=== PATIENT | female | born 1960 | race Caucasian/White ===

== ENCOUNTER → 2017-01-22 | Outpatient (CLI) | payer OTHER | END | disposition home or self-care (01) | LOC: CARD 15:50 | DX: I08.1 Rheumatic disorders of both mitral and tricuspid valves (principal) ==

== ENCOUNTER 2017-03-21 18:33 | Emergency (ER) | payer OTHER ==
[~2017-03-21] VITALS: Ht 175.2 cm; Wt 83.9 kg
[2017-03-21] MEDS ORDERED: ATENOLOL50 M1 PO (18:43)
[2017-03-21] MEDS ORDERED: KLOR-CON M1010 ME1 PO (18:43)
[2017-03-21] MEDS ORDERED: LIPITOR10 MG PO (18:44)
[2017-03-21] MEDS ORDERED: METFORMIN HCL1000 MG PO (18:44)
[2017-03-21] MEDS ORDERED: LOSARTAN POTASS25 M1 PO (18:44)
[2017-03-21] MEDS ORDERED: ASPIRIN81 M1 PO (18:45)
[2017-03-21] MEDS ORDERED: DULERA100 PO (18:45)
[2017-03-21] MEDS ORDERED: MONTELUKAST SOD10 MG PO (18:45)
[2017-03-21] MEDS ORDERED: PRILOSEC20 M1 PO (18:46)
[2017-03-21 19:34] LABS: BILIRUBIN 2+ (NEGATIVE); BLOOD 3+ (NEGATIVE); CLARITY TURBID (CLEAR); COLOR BROWN (YELLOW); GLUCOSE NEGATIVE (NEGATIVE); KETONE 1+ (NEGATIVE); NITRITE POSITIVE (NEGATIVE); PH 6.5 (5.0-9.0); PROTEIN 3+ (NEGATIVE)
[2017-03-21 19:39] LABS: LEUKO ESTERASE 3+ (NEGATIVE)
[2017-03-21 19:46] LABS: RBC TNTC rbc/hpf (0-2); URINE REFLEX COMMENT YES (NO)
[2017-03-21] MEDS ORDERED: PYRIDIUM100 MG PO (19:51)
[2017-03-21] MEDS ORDERED: MACROBID100 M1 PO (19:51)
[2017-03-21 20:19] LABS: BASO # 0.1 10*3/uL (0.0-0.1); BASO % 0.7 % (0.0-1.0); EOS # 0.5 10*3/uL (0.0-0.4); HEMATOCRIT 41.9 % (37.0-47.0); HEMOGLOBIN 13.8 g/dl (12.0-16.0); LYMPH # 1.7 10*3/uL (1.3-4.4); LYMPH % 16.9 % (27.0-41.0); MEAN CORPUSCULAR HGB CONC 32.9 g/dl (33.0-37.0); MEAN PLATELET VOLUME 10.4 fl (9.6-12.3); MONO # 0.5 10*3/uL (0.1-1.0); MONO % 5.2 % (3.0-9.0); NEUT # 7.1 10*3/uL (2.3-7.9); NEUT % 71.8 % (47.0-73.0); PLATELET COUNT AUTOMATED 250 10*3/uL (130-400); RED BLOOD COUNT 4.93 10*6/uL (4.10-5.10); RED CELL DISTRI WIDTH 13.6 % (0-14.5); WHITE BLOOD COUNT 9.9 10*3/uL (4.8-10.8)
[2017-03-21 20:35] LABS: ALBUMIN 4.1 gm/dl (3.1-4.5); BILIRUBIN, TOTAL 0.6 mg/dl (0.2-1.0); BUN 10 mg/dl (7-24); CARBON DIOXIDE 25 mmol/L (21-32); CHLORIDE 97 mmol/L (98-107); EST GLOM FILT AFRICAN AMERICAN > 60 ml/min; GLUCOSE 178 mg/dL (65-99); POTASSIUM 4.7 mmol/L (3.5-5.1); SGOT/AST 93 IU/L (3-35); SGPT/ALT 129 U/L (12-78); SODIUM 134 mmol/L (136-145); TOTAL PROTEIN 8.1 gm/dL (6.4-8.2)
[2017-03-21 20:36] LABS: ALKALINE PHOSPHATASE 157 U/L (45-117)
[2017-03-21 22:16] LABS: LA>2 REFLEX 2 HR DRAW NOW
== END 2017-03-21 21:10 | disposition home or self-care (01) ==
LOC: ED 18:33
PROVIDERS: Physician Assistant
DX: N30.01 Acute cystitis with hematuria (principal); E87.2 Acidosis; Z88.2 Allergy status to sulfonamides; Z79.82 Long term (current) use of aspirin; Z79.899 Other long term (current) drug therapy

== ENCOUNTER 2017-04-22 10:06 | Emergency (ER) | payer OTHER ==
[~2017-04-22] VITALS: Ht 175.2 cm; Wt 81.6 kg
[~2017-04-22 10:06] MED LIST: ASPIRIN81 M1 PO; ATENOLOL50 M1 PO; DULERA100 PO; KLOR-CON M1010 ME1 PO; LIPITOR10 MG PO; LOSARTAN POTASS25 M1 PO; MACROBID100 M1 PO; METFORMIN HCL1000 MG PO; MONTELUKAST SOD10 MG PO; PRILOSEC20 M1 PO; PYRIDIUM100 MG PO
== END 2017-04-22 11:54 | disposition home or self-care (01) ==
LOC: ED 10:06
DX: Z20.3 Contact with and (suspected) exposure to rabies (principal); S80.862A Insect bite (nonvenomous), left lower leg, initial encounter; S80.861A Insect bite (nonvenomous), right lower leg, initial encounter; Z98.890 Other specified postprocedural states; Z79.82 Long term (current) use of aspirin; Z79.899 Other long term (current) drug therapy; Z88.2 Allergy status to sulfonamides; W57.XXXA Bitten or stung by nonvenomous insect and other nonvenomous arthropods, initial encounter; Y93.89 Activity, other specified; Y92.89 Other specified places as the place of occurrence of the external cause; Y99.9 Unspecified external cause status

== ENCOUNTER 2017-04-25 07:22 | Emergency (ER) | payer OTHER ==
[~2017-04-25] VITALS: Ht 177.8 cm; Wt 81.6 kg
== END 2017-04-25 09:10 | disposition home or self-care (01) ==
LOC: ED 07:22
DX: Z23 Encounter for immunization (principal); Z79.899 Other long term (current) drug therapy; Z79.82 Long term (current) use of aspirin; Z88.2 Allergy status to sulfonamides

== ENCOUNTER 2017-04-29 07:42 | Emergency (ER) | payer OTHER ==
[~2017-04-29] VITALS: Wt 81.6 kg
== END 2017-04-29 08:30 | disposition home or self-care (01) ==
LOC: ED 07:42
DX: Z23 Encounter for immunization (principal); Z98.890 Other specified postprocedural states; Z79.82 Long term (current) use of aspirin; Z79.899 Other long term (current) drug therapy; Z88.2 Allergy status to sulfonamides

== ENCOUNTER 2017-05-06 07:53 | Emergency (ER) | payer OTHER | END 2017-05-06 09:27 | disposition home or self-care (01) | LOC: ED 07:53 | DX: Z23 Encounter for immunization (principal); Z79.82 Long term (current) use of aspirin; Z79.899 Other long term (current) drug therapy; Z88.2 Allergy status to sulfonamides ==

== ENCOUNTER → 2017-06-15 | Outpatient (CLI) | payer OTHER ==
[2017-06-15 10:36] LABS: ALBUMIN 3.9 gm/dl (3.1-4.5); ALKALINE PHOSPHATASE 148 U/L (45-117); BUN 9 mg/dl (7-24); CHLORIDE 103 mmol/L (98-107); CHOLESTEROL 146 mg/dL (<200); CREATININE 1.01 mg/dL (0.55-1.02); HDL CHOLESTEROL 66 mg/dl (40-60); LDL CHOLESTEROL 43 mg/dL (9-159); POTASSIUM 3.5 mmol/L (3.5-5.1); SGOT/AST 29 IU/L (3-35); SGPT/ALT 46 U/L (12-78); SODIUM 138 mmol/L (136-145); TOTAL PROTEIN 7.3 gm/dL (6.4-8.2); TRIGLYCERIDES 186 mg/dl (<150); VLDL CHOLESTEROL 37 mg/dL (6-40)
== END | disposition home or self-care (01) ==
LOC: LAB 09:15
PROVIDERS: Family Medicine
DX: R79.89 Other specified abnormal findings of blood chemistry (principal)

== ENCOUNTER → 2017-09-19 | Outpatient (CLI) | payer OTHER ==
[2017-09-19 11:12] LABS: ALKALINE PHOSPHATASE 127 U/L (45-117); BUN 13 mg/dl (7-24); CHLORIDE 102 mmol/L (98-107); CREATININE 0.92 mg/dL (0.55-1.02); POTASSIUM 4.2 mmol/L (3.5-5.1); SGOT/AST 28 IU/L (3-35); SGPT/ALT 41 U/L (12-78); SODIUM 138 mmol/L (136-145); TOTAL PROTEIN 7.1 gm/dL (6.4-8.2)
== END | disposition home or self-care (01) ==
LOC: LAB 09:57
PROVIDERS: Family Medicine
DX: E11.9 Type 2 diabetes mellitus without complications (principal); R79.89 Other specified abnormal findings of blood chemistry

== ENCOUNTER → 2018-01-16 | Outpatient (CLI) | payer OTHER ==
[2018-01-16 10:36] LABS: THYROID STIM HORMONE (HS) 1.67 uIU/ml (0.358-4.75)
== END | disposition home or self-care (01) ==
LOC: LAB 09:10
DX: E11.9 Type 2 diabetes mellitus without complications (principal); E78.2 Mixed hyperlipidemia

== ENCOUNTER → 2018-03-12 | Outpatient (CLI) | payer OTHER | END | disposition home or self-care (01) | LOC: LAB 09:41 | DX: Z51.81 Encounter for therapeutic drug level monitoring (principal); Z79.899 Other long term (current) drug therapy ==

== ENCOUNTER → 2018-04-30 | Outpatient (CLI) | payer OTHER ==
[2018-04-30 10:15] LABS: ALBUMIN 4.1 gm/dl (3.1-4.5); ALKALINE PHOSPHATASE 146 U/L (45-117); BUN 12 mg/dl (7-24); CHLORIDE 102 mmol/L (98-107); SGOT/AST 58 IU/L (3-35); SGPT/ALT 75 U/L (12-78); SODIUM 139 mmol/L (136-145); TOTAL PROTEIN 7.3 gm/dL (6.4-8.2)
== END | disposition home or self-care (01) ==
LOC: LAB 08:55
PROVIDERS: Physician Assistant Medical
DX: M54.5 Low back pain (principal); E11.9 Type 2 diabetes mellitus without complications

== ENCOUNTER → 2018-07-31 | Outpatient (CLI) | payer OTHER | END | disposition home or self-care (01) | LOC: LAB 09:10 | DX: E11.9 Type 2 diabetes mellitus without complications (principal) ==

== ENCOUNTER → 2019-07-02 | Outpatient (CLI) | payer OTHER ==
[2019-07-02 08:37] LABS: CHLORIDE 103 mmol/L (98-107); POTASSIUM 3.9 mmol/L (3.5-5.1); SODIUM 139 mmol/L (136-145)
[2019-07-02 08:44] LABS: ALBUMIN 3.8 gm/dl (3.1-4.5); ALKALINE PHOSPHATASE 100 U/L (45-117); BUN 9 mg/dl (7-24); CHOLESTEROL 142 mg/dL (<200); CREATININE 0.93 mg/dL (0.55-1.02); HDL CHOLESTEROL 59 mg/dl (40-60); LDL CHOLESTEROL 25 mg/dL (9-159); SGOT/AST 40 IU/L (3-35); SGPT/ALT 73 U/L (12-78); TOTAL PROTEIN 7.2 gm/dL (6.4-8.2); TRIGLYCERIDES 288 mg/dl (<150); VLDL CHOLESTEROL 58 mg/dL (6-40)
== END | disposition home or self-care (01) ==
LOC: LAB 07:22
PROVIDERS: Nurse Practitioner
DX: I10 Essential (primary) hypertension (principal); E11.9 Type 2 diabetes mellitus without complications; E78.2 Mixed hyperlipidemia

== ENCOUNTER → 2020-02-26 | Outpatient (CLI) | payer OTHER ==
[2020-02-26 08:37] LABS: ALBUMIN 3.9 gm/dl (3.1-4.5); ALKALINE PHOSPHATASE 118 U/L (45-117); BUN 10 mg/dl (7-24); CHLORIDE 98 mmol/L (98-107); CHOLESTEROL 134 mg/dL (<200); CREATININE 0.97 mg/dL (0.55-1.02); HDL CHOLESTEROL 70 mg/dl (40-60); LDL CHOLESTEROL 18 mg/dL (9-159); POTASSIUM 3.5 mmol/L (3.5-5.1); SGOT/AST 109 IU/L (3-35); SGPT/ALT 126 U/L (12-78); SODIUM 135 mmol/L (136-145); TOTAL PROTEIN 7.8 gm/dL (6.4-8.2); TRIGLYCERIDES 230 mg/dl (<150); VLDL CHOLESTEROL 46 mg/dL (6-40)
[2020-02-28 11:10] LABS: CREATININE,URINE 136.5 mg/dL (Not Estab.)
== END ==
LOC: LAB 07:40
PROVIDERS: General Practice
DX: E11.9 Type 2 diabetes mellitus without complications (principal)

== ENCOUNTER → 2020-04-19 | Outpatient (CLI) | payer OTHER | END | disposition home or self-care (01) | LOC: US 11:00 | DX: K76.0 Fatty (change of) liver, not elsewhere classified (principal) ==

== ENCOUNTER → 2020-07-17 | Outpatient (CLI) | payer OTHER ==
[2020-07-18 16:12] LABS: ANTI-SMOOTH MUSCLE ANTIBODY 9 Units (0-19)
== END | disposition home or self-care (01) ==
LOC: LAB 00:24
PROVIDERS: ATTEND Internal Medicine Gastroenterology
DX: K76.0 Fatty (change of) liver, not elsewhere classified (principal)

== ENCOUNTER → 2020-11-11 | Outpatient (CLI) | payer OTHER ==
[2020-11-11 09:30] LABS: HEMATOCRIT 38.2 % (37.0-47.0); MEAN CELL VOLUME 84.7 fl (81.0-99.0); MEAN CORPUSCULAR HGB 26.6 pg (27.0-31.0); MEAN CORPUSCULAR HGB CONC 31.4 g/dl (33.0-37.0); MEAN PLATELET VOLUME 10.8 fl (9.6-12.3); RED BLOOD COUNT 4.51 10*6/uL (4.10-5.10); RED CELL DISTRI WIDTH 13.7 % (0-14.5); WHITE BLOOD COUNT 4.8 10*3/uL (4.8-10.8)
[2020-11-11 09:46] LABS: ALBUMIN 3.9 gm/dl (3.1-4.5); ALKALINE PHOSPHATASE 114 U/L (45-117); BUN 11 mg/dl (7-24); CHLORIDE 99 mmol/L (98-107); CHOLESTEROL 136 mg/dL (<200); CREATININE 0.91 mg/dL (0.55-1.02); HDL CHOLESTEROL 72 mg/dl (40-60); LDL CHOLESTEROL 25 mg/dL (9-159); POTASSIUM 3.4 mmol/L (3.5-5.1); SGOT/AST 45 IU/L (3-35); SGPT/ALT 79 U/L (12-78); SODIUM 134 mmol/L (136-145); TOTAL PROTEIN 7.3 gm/dL (6.4-8.2); TRIGLYCERIDES 197 mg/dl (<150); VLDL CHOLESTEROL 39 mg/dL (6-40)
[2020-11-11 10:22] LABS: VITAMIN D, 25-HYDROXY 71.3 ng/mL (30-100)
== END | disposition home or self-care (01) ==
LOC: LAB 08:15
PROVIDERS: ATTEND Physician Assistant
DX: E11.9 Type 2 diabetes mellitus without complications (principal); I10 Essential (primary) hypertension; E78.5 Hyperlipidemia, unspecified

== ENCOUNTER → 2021-05-10 | Outpatient (CLI) | payer OTHER ==
[2021-05-10 07:28] LABS: MEAN CELL VOLUME 83.9 fl (81.0-99.0); MEAN CORPUSCULAR HGB 26.4 pg (27.0-31.0); MEAN CORPUSCULAR HGB CONC 31.5 g/dl (33.0-37.0); MEAN PLATELET VOLUME 10.2 fl (9.6-12.3); RED BLOOD COUNT 4.77 10*6/uL (4.10-5.10); RED CELL DISTRI WIDTH 14.1 % (0-14.5); WHITE BLOOD COUNT 5.4 10*3/uL (4.8-10.8)
[2021-05-10 07:43] LABS: ALBUMIN 4.2 gm/dl (3.1-4.5); ALKALINE PHOSPHATASE 134 U/L (45-117); BUN 13 mg/dl (7-24); CHLORIDE 100 mmol/L (98-107); CREATININE 0.92 mg/dL (0.55-1.02); POTASSIUM 3.6 mmol/L (3.5-5.1); SGOT/AST 87 IU/L (3-35); SGPT/ALT 141 U/L (12-78); SODIUM 134 mmol/L (136-145); TOTAL PROTEIN 7.9 gm/dL (6.4-8.2)
[2021-05-10 08:26] LABS: FREE T4 1.07 ng/dl (0.76-1.46)
== END | disposition home or self-care (01) ==
LOC: LAB 00:16
PROVIDERS: Internal Medicine Gastroenterology; ATTEND Physician Assistant
DX: I10 Essential (primary) hypertension (principal); E11.9 Type 2 diabetes mellitus without complications; E78.49 Other hyperlipidemia

== ENCOUNTER → 2021-06-26 | Outpatient (CLI) | payer OTHER ==
[2021-06-27 15:07] LABS: ANTI-SMOOTH MUSCLE ANTIBODY 7 Units (0-19)
== END | disposition home or self-care (01) ==
LOC: LAB 00:18
PROVIDERS: ATTEND Internal Medicine Gastroenterology
DX: R79.89 Other specified abnormal findings of blood chemistry (principal)

== ENCOUNTER → 2022-01-18 | Outpatient (CLI) | payer OTHER ==
[2022-01-18 07:42] LABS: HEMATOCRIT 35.9 % (37.0-47.0); MEAN CELL VOLUME 80.3 fl (81.0-99.0); MEAN CORPUSCULAR HGB 26.4 pg (27.0-31.0); MEAN CORPUSCULAR HGB CONC 32.9 g/dl (33.0-37.0); MEAN PLATELET VOLUME 10.6 fl (9.6-12.3); RED BLOOD COUNT 4.47 10*6/uL (4.10-5.10); RED CELL DISTRI WIDTH 13.6 % (0-14.5)
[2022-01-18 08:07] LABS: ALKALINE PHOSPHATASE 132 U/L (45-117); BUN 10 mg/dl (7-24); CHLORIDE 99 mmol/L (98-107); CHOLESTEROL 147 mg/dL (<200); CREATININE 0.91 mg/dL (0.55-1.02); LDL CHOLESTEROL 17 mg/dL (9-159); SGOT/AST 102 IU/L (3-35); SGPT/ALT 136 U/L (12-78); SODIUM 134 mmol/L (136-145); TOTAL PROTEIN 7.3 gm/dL (6.4-8.2); TRIGLYCERIDES 333 mg/dl (<150)
== END | disposition home or self-care (01) ==
LOC: LAB 00:10
PROVIDERS: Physician Assistant; ATTEND Internal Medicine Gastroenterology
DX: K76.0 Fatty (change of) liver, not elsewhere classified (principal)

== ENCOUNTER → 2022-03-19 | Outpatient (CLI) | payer OTHER ==
[2022-03-19 08:44] LABS: TOTAL PROTEIN 7.4 gm/dL (6.4-8.2)
== END | disposition home or self-care (01) ==
LOC: LAB 07:47
PROVIDERS: ATTEND Physician Assistant
DX: E11.8 Type 2 diabetes mellitus with unspecified complications (principal); K76.0 Fatty (change of) liver, not elsewhere classified

== ENCOUNTER 2022-05-18 15:39 | Emergency (ER) | payer OTHER ==
[~2022-05-18] VITALS: Ht 177.8 cm; Wt 83.0 kg
[2022-05-18 15:59] LABS: BASO # 0.1 10*3/uL (0.0-0.1); BASO % 1.2 % (0.0-1.0); EOS # 0.4 10*3/uL (0.0-0.4); EOS % 6.8 % (1.0-4.0); HEMATOCRIT 36.2 % (37.0-47.0); LYMPH # 1.7 10*3/uL (1.3-4.4); LYMPH % 29.1 % (27.0-41.0); MEAN CELL VOLUME 80.6 fl (81.0-99.0); MEAN CORPUSCULAR HGB 26.3 pg (27.0-31.0); MEAN CORPUSCULAR HGB CONC 32.6 g/dl (33.0-37.0); MEAN PLATELET VOLUME 10.4 fl (9.6-12.3); MONO # 0.4 10*3/uL (0.1-1.0); MONO % 6.7 % (3.0-9.0); NEUT # 3.3 10*3/uL (2.3-7.9); NEUT % 55.9 % (47.0-73.0); PLATELET COUNT AUTOMATED 224 10*3/uL (130-400); RED BLOOD COUNT 4.49 10*6/uL (4.10-5.10); RED CELL DISTRI WIDTH 14.6 % (0-14.5); WHITE BLOOD COUNT 5.9 10*3/uL (4.8-10.8)
[2022-05-18 16:10] LABS: ACT PARTIAL THROMBO TIME 25.6 SECONDS (20.0-32.1)
[2022-05-18 16:17] LABS: ALKALINE PHOSPHATASE 128 U/L (45-117); BUN 10 mg/dl (7-24); CHLORIDE 103 mmol/L (98-107); CREATININE 1.03 mg/dL (0.55-1.02); POTASSIUM 3.8 mmol/L (3.5-5.1); SGOT/AST 95 IU/L (3-35); SGPT/ALT 120 U/L (12-78); SODIUM 138 mmol/L (136-145); TOTAL PROTEIN 7.7 gm/dL (6.4-8.2)
== END 2022-05-18 18:40 | disposition home or self-care (01) ==
LOC: ED 15:39
PROVIDERS: Internal Medicine
DX: R07.89 Other chest pain (principal); R06.02 Shortness of breath; Z91.048 Other nonmedicinal substance allergy status; Z88.2 Allergy status to sulfonamides; Z79.82 Long term (current) use of aspirin; Z98.890 Other specified postprocedural states

== ENCOUNTER → 2022-06-18 | Outpatient (CLI) | payer OTHER ==
[~2022-06-18] MED LIST changes: +ACIDOPHILUS1 EAC4 PO; +BENICAR20 MG PO; +CALCIUM 600-D31 EAC1 PO; +DAILY VALUE1 EACH PO; +JANUMET 50-1,01 EACH PO; +OMEGA-31000 M1 PO; +VITAMIN D250 MCG PO; +ZYRTEC10 M2 PO
== END ==
LOC: CARD 00:10
PROVIDERS: ATTEND Physician Assistant
DX: R06.09 Other forms of dyspnea (principal)

== ENCOUNTER → 2022-07-01 | Outpatient (CLI) | payer OTHER | LOC: LAB 01:45 | PROVIDERS: ATTEND Physician Assistant | DX: R06.09 Other forms of dyspnea (principal); E78.5 Hyperlipidemia, unspecified ==

== ENCOUNTER → 2022-07-17 | Outpatient (CLI) | payer OTHER | END | disposition home or self-care (01) | LOC: CARD 00:04 | PROVIDERS: ATTEND Physician Assistant | DX: I08.0 Rheumatic disorders of both mitral and aortic valves (principal) ==

== ENCOUNTER → 2022-08-29 | Outpatient (CLI) | payer OTHER ==
[2022-08-29 08:04] LABS: BASO # 0.1 10*3/uL (0.0-0.1); BASO % 1.2 % (0.0-1.0); EOS # 0.4 10*3/uL (0.0-0.4); EOS % 6.2 % (1.0-4.0); HEMATOCRIT 39.1 % (37.0-47.0); LYMPH # 2.1 10*3/uL (1.3-4.4); LYMPH % 36.7 % (27.0-41.0); MEAN CELL VOLUME 80.8 fl (81.0-99.0); MEAN CORPUSCULAR HGB 25.8 pg (27.0-31.0); MEAN PLATELET VOLUME 10.2 fl (9.6-12.3); MONO # 0.4 10*3/uL (0.1-1.0); MONO % 6.9 % (3.0-9.0); NEUT # 2.8 10*3/uL (2.3-7.9); NEUT % 48.8 % (47.0-73.0); PLATELET COUNT AUTOMATED 214 10*3/uL (130-400); RED BLOOD COUNT 4.84 10*6/uL (4.10-5.10); RED CELL DISTRI WIDTH 15.2 % (0-14.5); WHITE BLOOD COUNT 5.7 10*3/uL (4.8-10.8)
[2022-08-29 10:32] LABS: ALKALINE PHOSPHATASE 116 U/L (46-116); BUN 11 mg/dl (9-23); CHLORIDE 97 mmol/L (98-107); CHOLESTEROL 180 mg/dL (<200); CREATININE 0.98 mg/dL (0.55-1.02); LDL CHOLESTEROL 62 mg/dL (9-159); POTASSIUM 3.9 mmol/L (3.4-5.1); SGPT/ALT 106 U/L (10-49); TOTAL PROTEIN 7.2 gm/dL (6.0-8.0); TRIGLYCERIDES 255 mg/dl (<150)
== END | disposition home or self-care (01) ==
LOC: LAB 02:00
PROVIDERS: Physician Assistant; ATTEND Internal Medicine Gastroenterology
DX: E11.8 Type 2 diabetes mellitus with unspecified complications (principal); E78.5 Hyperlipidemia, unspecified; R06.09 Other forms of dyspnea; K76.0 Fatty (change of) liver, not elsewhere classified; K21.9 Gastro-esophageal reflux disease without esophagitis; I10 Essential (primary) hypertension; D50.9 Iron deficiency anemia, unspecified

== ENCOUNTER → 2022-11-04 | Outpatient (CLI) | payer OTHER ==
[2022-11-04 07:35] LABS: BASO # 0.1 10*3/uL (0.0-0.1); BASO % 1.6 % (0.0-1.0); EOS # 0.4 10*3/uL (0.0-0.4); EOS % 8.8 % (1.0-4.0); HEMATOCRIT 40.1 % (37.0-47.0); LYMPH # 2.4 10*3/uL (1.3-4.4); MEAN CELL VOLUME 82.9 fl (81.0-99.0); MEAN CORPUSCULAR HGB 26.2 pg (27.0-31.0); MEAN CORPUSCULAR HGB CONC 31.7 g/dl (33.0-37.0); MEAN PLATELET VOLUME 10.5 fl (9.6-12.3); MONO # 0.4 10*3/uL (0.1-1.0); MONO % 7.4 % (3.0-9.0); NEUT # 1.7 10*3/uL (2.3-7.9); PLATELET COUNT AUTOMATED 220 10*3/uL (130-400); RED BLOOD COUNT 4.84 10*6/uL (4.10-5.10); RED CELL DISTRI WIDTH 15.6 % (0-14.5)
== END | disposition home or self-care (01) ==
LOC: LAB 07:07
PROVIDERS: ATTEND Internal Medicine Gastroenterology
DX: D64.9 Anemia, unspecified (principal)

== ENCOUNTER → 2023-06-03 | Outpatient (CLI) | payer OTHER | END | disposition home or self-care (01) | LOC: US 09:00 | PROVIDERS: ATTEND Physician Assistant | DX: I65.23 Occlusion and stenosis of bilateral carotid arteries (principal); H93.A9 Pulsatile tinnitus, unspecified ear ==

== ENCOUNTER → 2023-09-23 | Outpatient (CLI) | payer OTHER ==
[2023-09-23 07:28] LABS: MEAN CELL VOLUME 86.3 fl (81.0-99.0); MEAN CORPUSCULAR HGB 27.8 pg (27.0-31.0); MEAN CORPUSCULAR HGB CONC 32.2 g/dl (33.0-37.0); MEAN PLATELET VOLUME 10.6 fl (9.6-12.3); RED BLOOD COUNT 4.75 10*6/uL (4.10-5.10); WHITE BLOOD COUNT 5.2 10*3/uL (4.8-10.8)
[2023-09-23 08:02] LABS: ALKALINE PHOSPHATASE 110 U/L (46-116); BUN 14 mg/dl (9-23); CHLORIDE 99 mmol/L (98-107); CHOLESTEROL 166 mg/dL (<200); LDL CHOLESTEROL 47 mg/dL (9-159); POTASSIUM 3.5 mmol/L (3.4-5.1); SGPT/ALT 114 U/L (5-49); TOTAL PROTEIN 7.5 gm/dL (6.0-8.0); TRIGLYCERIDES 296 mg/dl (<150)
== END | disposition home or self-care (01) ==
LOC: LAB 01:01
PROVIDERS: Physician Assistant; ATTEND Internal Medicine Gastroenterology
DX: I10 Essential (primary) hypertension (principal); E11.9 Type 2 diabetes mellitus without complications

== ENCOUNTER → 2024-02-16 | Outpatient (CLI) | payer MEDICARE ==
[2024-02-16 08:24] LABS: HEMATOCRIT 40.3 % (37.0-47.0); MEAN CELL VOLUME 83.6 fl (81.0-99.0); MEAN CORPUSCULAR HGB 27.2 pg (27.0-31.0); MEAN CORPUSCULAR HGB CONC 32.5 g/dl (33.0-37.0); MEAN PLATELET VOLUME 10.9 fl (9.6-12.3); RED BLOOD COUNT 4.82 10*6/uL (4.10-5.10); RED CELL DISTRI WIDTH 14.2 % (0-14.5); WHITE BLOOD COUNT 4.5 10*3/uL (4.8-10.8)
[2024-02-16 08:45] LABS: TOTAL PROTEIN 7.2 gm/dL (6.0-8.0)
[2024-02-16 08:49] LABS: ALKALINE PHOSPHATASE 116 U/L (46-116); BUN 10 mg/dl (9-23); CHLORIDE 94 mmol/L (98-107); CHOLESTEROL 210 mg/dL (<200); LDL CHOLESTEROL 80 mg/dL (9-159); POTASSIUM 3.6 mmol/L (3.4-5.1); SGPT/ALT 177 U/L (5-49); TOTAL PROTEIN 7.2 gm/dL (6.0-8.0); TRIGLYCERIDES 364 mg/dl (<150)
== END | disposition home or self-care (01) ==
LOC: LAB 07:08
PROVIDERS: Physician Assistant; ATTEND Internal Medicine Gastroenterology
DX: I10 Essential (primary) hypertension (principal); E11.9 Type 2 diabetes mellitus without complications; K76.0 Fatty (change of) liver, not elsewhere classified

== ENCOUNTER → 2024-03-09 | Outpatient (CLI) | payer MEDICARE ==
[2024-03-09 09:56] LABS: TOTAL PROTEIN 7.3 gm/dL (6.0-8.0)
[2024-03-10 16:09] LABS: ANTI-SMOOTH MUSCLE ANTIBODY 5 Units (0-19)
== END ==
LOC: LAB 02:08 → US 07:30 → LAB 07:30
PROVIDERS: Physician Assistant; ATTEND Internal Medicine Gastroenterology
DX: K76.0 Fatty (change of) liver, not elsewhere classified (principal); R74.01 Elevation of levels of liver transaminase levels

== ENCOUNTER → 2024-12-28 | Outpatient (CLI) | payer MEDICARE | END | disposition home or self-care (01) | LOC: RESCLI 03:43 | PROVIDERS: ATTEND Internal Medicine | DX: I10 Essential (primary) hypertension (principal); E78.2 Mixed hyperlipidemia; K21.9 Gastro-esophageal reflux disease without esophagitis; K76.0 Fatty (change of) liver, not elsewhere classified; E11.9 Type 2 diabetes mellitus without complications; E78.5 Hyperlipidemia, unspecified; E55.9 Vitamin D deficiency, unspecified; J45.909 Unspecified asthma, uncomplicated; G43.909 Migraine, unspecified, not intractable, without status migrainosus; Z91.09 Other allergy status, other than to drugs and biological substances; Z79.899 Other long term (current) drug therapy; Z98.890 Other specified postprocedural states; Z88.8 Allergy status to other drugs, medicaments and biological substances; Z88.2 Allergy status to sulfonamides ==